=== PATIENT | male | born 1980 | race Caucasian/White ===

== ENCOUNTER 2016-11-05 04:20 | Emergency (ER) | payer MEDICAID ==
[~2016-11-05] VITALS: Ht 188 cm; Wt 77.0 kg
[2016-11-05 06:41] LABS: BASOPHILS # (AUTO) 0.04 K/uL (0.00-0.20); BASOPHILS % (AUTO) 0.6 % (0.0-2.0); EOSINOPHILS # (AUTO) 0.03 K/uL (0.00-0.70); EOSINOPHILS % (AUTO) 0.53 % (1.0-6.0); HEMATOCRIT 41.3 % (41-53); HEMOGLOBIN 13.9 g/dL (13.5-17.5); LYMPHOCYTES # (AUTO) 1.4 K/uL (1.0-4.8); LYMPHOCYTES % (AUTO) 22.3 % (22.0-44.0); MEAN CORPUSCULAR HEMOGLOBIN 30.2 pg (26.0-34.0); MEAN CORPUSCULAR HGB CONC 33.5 G/dL (31.0-37.0); MEAN CORPUSCULAR VOLUME 90 fL (80-100); MONOCYTES # (AUTO) 0.5 K/uL (0.1-1.0); MONOCYTES % (AUTO) 8.4 % (2.0-9.0); NEUTROPHILS # (AUTO) 4.2 K/uL (1.8-7.7); NEUTROPHILS % (AUTO) 68.2 % (40.0-70.0); PLATELET COUNT (AUTO) 247 K/uL (150-450); RED BLOOD CELL COUNT(AUTO) 4.59 MIL/uL (4.50-5.90); RED CELL DISTRIBUTION WIDTH 15.4 % (11.5-14.5); WHITE BLOOD COUNT (AUTO) 6.2 K/uL (4.5-11.0)
[2016-11-05 06:47] LABS: ANION GAP 7 mmol/L (8-16); CALCIUM, TOTAL 9.2 mg/dL (8.8-10.5); CARBON DIOXIDE 30 mmol/L (22-29); CHLORIDE 104 mmol/L (98-107); CREATININE 1.07 mg/dL (0.60-1.30); GLOMERULAR FILTR. RATE CALC > 60 mL/min (>60); POTASSIUM 4.6 mmol/L (3.5-5.1); SODIUM SERUM 141 mmol/L (136-145); UREA NITROGEN, BLOOD 17 mg/dL (7-18)
[2016-11-05 06:53] LABS: ALANINE AMINOTRANSFERASE 41 U/L (12-78); ASPARTATE AMINOTRANSFERASE 38 U/L (15-37); BILIRUBIN,TOTAL 0.4 mg/dL (0.1-1.0); TOTAL PROTEIN, SERUM 7.5 g/dL (6.4-8.2)
[2016-11-05 10:49] VITALS: BP 129/83
== END 2016-11-05 10:51 | disposition home or self-care (01) ==
LOC: EMS 04:21
DX: F15.10 Other stimulant abuse, uncomplicated (principal); F17.200 Nicotine dependence, unspecified, uncomplicated
CPT/HCPCS: 36415; 80053; 80307; 85025; 99284; G0480

== ENCOUNTER 2018-12-11 11:27 | Emergency (ER) | payer MEDICAID ==
[~2018-12-11] VITALS: Ht 188 cm; Wt 112.3 kg
[2018-12-11] MEDS ORDERED: HYDROCODONE/ACETAMINOPHEN 5-325 MG TABLET PO ONE ×2 (12:15→13:00)
[2018-12-11] MEDS ORDERED: LORazepam 1 MG TABLET PO ONE ×2 (12:15→13:00)
[2018-12-11] MEDS ORDERED: KETOROLAC TROMETHAMINE 30 MG/ML VIAL IM ONE (12:30)
[2018-12-11] MEDS ORDERED: LORazepam 0.5 MG TABLET PO ONE (13:00)
[2018-12-11 14:00] VITALS: BP 158/89
[2018-12-11] MEDS ORDERED: CefTRIAXone SODIUM 1 GM/VIAL IM ONE (14:00)
== END 2018-12-11 14:30 | disposition home or self-care (01) ==
LOC: EMS 11:27
DX: N45.1 Epididymitis (principal); F15.90 Other stimulant use, unspecified, uncomplicated
CPT/HCPCS: 76870; 96372; 99284; J0696; J1885

== ENCOUNTER 2019-05-05 00:19 | Emergency (ER) | payer MEDICAID, OTHER ==
[~2019-05-05] VITALS: Ht 188 cm; Wt 77.3 kg
[2019-05-05] MEDS ORDERED: KETOROLAC TROMETHAMINE 30 MG/ML VIAL IM ONE (05:30)
[2019-05-05 07:00] VITALS: BP 155/95
== END 2019-05-05 07:01 | disposition home or self-care (01) ==
LOC: EMS 00:20
DX: S52.121A Displaced fracture of head of right radius, initial encounter for closed fracture (principal); W17.89XA Other fall from one level to another, initial encounter; Y93.39 Activity, other involving climbing, rappelling and jumping off; Y92.89 Other specified places as the place of occurrence of the external cause; Y99.8 Other external cause status
CPT/HCPCS: 73080; 96372; 99283; J1885

== ENCOUNTER 2019-05-09 18:30 | Emergency (ER) | payer OTHER ==
[~2019-05-09] VITALS: Ht 188 cm; Wt 68.1 kg
[2019-05-09 19:17] LABS: BASOPHILS % (AUTO) 0.9 % (0.0-2.0); EOSINOPHILS % (AUTO) 0.2 % (1.0-6.0); HEMATOCRIT 46.7 % (41-53); HEMOGLOBIN 15.4 g/dL (13.5-17.5); LYMPHOCYTES % (AUTO) 14.3 % (22.0-44.0); MEAN CORPUSCULAR HEMOGLOBIN 30.5 pg (26.0-34.0); MEAN CORPUSCULAR VOLUME 93 fL (80-100); MONOCYTES # (AUTO) 0.5 K/uL (0.1-1.0); MONOCYTES % (AUTO) 7.9 % (2.0-9.0); NEUTROPHILS # (AUTO) 5.3 K/uL (1.8-7.7); NEUTROPHILS % (AUTO) 76.7 % (40.0-70.0); PLATELET COUNT (AUTO) 257 K/uL (150-450); RED BLOOD CELL COUNT(AUTO) 5.04 MIL/uL (4.50-5.90); RED CELL DISTRIBUTION WIDTH 14.7 % (11.5-14.5)
[2019-05-09 19:37] LABS: CALCIUM, TOTAL 10.1 mg/dL (8.8-10.5); CREATININE 1.37 mg/dL (0.60-1.30); POTASSIUM 4.1 mmol/L (3.5-5.1)
[2019-05-09 19:40] LABS: ALBUMIN 4.7 g/dL (3.4-5.0); BILIRUBIN,TOTAL 0.8 mg/dL (0.1-1.0); TOTAL PROTEIN, SERUM 8.1 g/dL (6.4-8.2)
[2019-05-09] MEDS ORDERED: KETOROLAC TROMETHAMINE 60 MG/2 ML VIAL IM ONE (21:30)
[2019-05-09] MEDS ORDERED: METOPROLOL SUCCINATE 25 MG ER TABLET PO ONE (21:30)
[2019-05-09] MEDS ORDERED: ChlordiazePOXIDE HCL 25 MG CAPSULE PO ONE (23:30)
[2019-05-10 00:10] VITALS: BP 155/80
== END 2019-05-10 00:11 | disposition home or self-care (01) ==
LOC: EMS 18:32
DX: R07.9 Chest pain, unspecified (principal); F15.10 Other stimulant abuse, uncomplicated; F10.10 Alcohol abuse, uncomplicated; F17.210 Nicotine dependence, cigarettes, uncomplicated
CPT/HCPCS: 36415; 71045; 80053; 84484; 85025; 93005; 96372; 99284; J1885

== ENCOUNTER 2022-06-09 18:45 | Emergency (ER) | payer OTHER ==
[~2022-06-09] VITALS: Ht 188 cm; Wt 100.0 kg
[2022-06-09 20:57] VITALS: BP 142/82
[2022-06-09 21:10] LABS: BASOPHILS % (AUTO) 1.1 % (0.0-2.0); EOSINOPHILS % (AUTO) 1.1 % (1.0-6.0); HEMOGLOBIN 15.7 g/dL (13.5-17.5); LYMPHOCYTES # (AUTO) 1.6 K/uL (1.0-4.8); LYMPHOCYTES % (AUTO) 26.1 % (22.0-44.0); MEAN CORPUSCULAR HEMOGLOBIN 29.6 pg (26.0-34.0); MEAN CORPUSCULAR HGB CONC 33.5 G/dL (31.0-37.0); MEAN CORPUSCULAR VOLUME 88 fL (80-100); MONOCYTES # (AUTO) 0.4 K/uL (0.1-1.0); MONOCYTES % (AUTO) 6.9 % (2.0-9.0); NEUTROPHILS # (AUTO) 4.1 K/uL (1.8-7.7); NEUTROPHILS % (AUTO) 64.8 % (40.0-70.0); PLATELET COUNT (AUTO) 265 K/uL (150-450); RED BLOOD CELL COUNT(AUTO) 5.33 MIL/uL (4.50-5.90); RED CELL DISTRIBUTION WIDTH 13.4 % (11.5-14.5)
[2022-06-09 21:18] LABS: ANION GAP 8 mmol/L (8-16); CALCIUM, TOTAL 9.6 mg/dL (8.8-10.5); CARBON DIOXIDE 25 mmol/L (22-29); CHLORIDE 101 mmol/L (98-107); CREATININE 1.26 mg/dL (0.60-1.30); GLOMERULAR FILTR. RATE CALC > 60 mL/min (>60); GLUCOSE,RANDOM 111 mg/dL (70-110); POTASSIUM 4.1 mmol/L (3.5-5.1); SODIUM SERUM 134 mmol/L (136-145); UREA NITROGEN, BLOOD 16 mg/dL (7-18)
[2022-06-09 21:23] LABS: ALANINE AMINOTRANSFERASE 45 U/L (12-78); ALBUMIN 4.6 g/dL (3.4-5.0); ALKALINE PHOSPHATASE 93 U/L (46-116); ASPARTATE AMINOTRANSFERASE 57 U/L (15-37); BILIRUBIN,TOTAL 0.6 mg/dL (0.1-1.0); TOTAL PROTEIN, SERUM 8.3 g/dL (6.4-8.2)
[2022-06-09] MEDS ORDERED: LORazepam 1 MG TABLET PO ONE (22:45)
[2022-06-09] MEDS ORDERED: HALOPERIDOL 5 MG TABLET PO ONE (22:45)
== END 2022-06-09 23:57 | disposition home or self-care (01) ==
LOC: EMS 18:47
DX: R45.851 Suicidal ideations (principal); F10.10 Alcohol abuse, uncomplicated; F15.10 Other stimulant abuse, uncomplicated; F17.210 Nicotine dependence, cigarettes, uncomplicated
CPT/HCPCS: 99285; 80053; 85025; 36415; G0480

== ENCOUNTER 2023-11-10 04:34 | Emergency (ER) | payer OTHER ==
[~2023-11-10] VITALS: Ht 188 cm; Wt 90.9 kg
[2023-11-10 04:35] VITALS: BP 140/92; PULSE 100; RESP 15; TEMP 98.3
[2023-11-10 05:43] LABS: HEMOGLOBIN 16.2 g/dL (13.5-17.5); LYMPHOCYTES # (AUTO) 1.4 K/uL (1.0-4.8); MONOCYTES # (AUTO) 0.5 K/uL (0.1-1.0); MONOCYTES % (AUTO) 9.4 % (2.0-9.0); RED BLOOD CELL COUNT(AUTO) 5.23 MIL/uL (4.50-5.90); WHITE BLOOD COUNT (AUTO) 5.7 K/uL (4.5-11.0)
[2023-11-10 05:47] LABS: BASOPHILS % (AUTO) 1.3 % (0.0-2.0); EOSINOPHILS % (AUTO) 3.4 % (1.0-6.0); HEMATOCRIT 47.7 % (41-53); LYMPHOCYTES % (AUTO) 23.7 % (22.0-44.0); MEAN CORPUSCULAR HEMOGLOBIN 30.9 pg (26.0-34.0); MEAN CORPUSCULAR VOLUME 91 fL (80-100); NEUTROPHILS # (AUTO) 3.6 K/uL (1.8-7.7); NEUTROPHILS % (AUTO) 62.2 % (40.0-70.0); PLATELET COUNT (AUTO) 273 K/uL (150-450); RED CELL DISTRIBUTION WIDTH 13.3 % (11.5-14.5)
[2023-11-10 05:52] LABS: ANION GAP 10 mmol/L (8-16); CALCIUM, TOTAL 9.1 mg/dL (8.8-10.5); CARBON DIOXIDE 28 mmol/L (22-29); CHLORIDE 101 mmol/L (98-107); CREATININE 1.05 mg/dL (0.60-1.30); GLOMERULAR FILTR. RATE CALC > 60 mL/min (>60); GLUCOSE,RANDOM 89 mg/dL (70-110); POTASSIUM 3.8 mmol/L (3.5-5.1); SODIUM SERUM 139 mmol/L (136-145); UREA NITROGEN, BLOOD 20 mg/dL (7-18)
[2023-11-10 05:57] LABS: ALANINE AMINOTRANSFERASE 39 U/L (12-78); ALBUMIN 4.2 g/dL (3.4-5.0); ALKALINE PHOSPHATASE 76 U/L (46-116); ASPARTATE AMINOTRANSFERASE 30 U/L (15-37); BILIRUBIN,TOTAL 0.8 mg/dL (0.1-1.0)
[2023-11-10 06:01] LABS: ALCOHOL, BLOOD (SERUM) < 3 mg/dL (0-10)
[2023-11-10] MEDS: OLANZapine 10 MG TABLET PO ONE (07:00)
[2023-11-10 07:09] LABS: ALCOHOL, URINE DRUG SCREEN NEGATIVE (NEGATIVE); AMPHET/METH SCREEN,URINE POSITIVE (NEGATIVE); BARBITURATE SCREEN, URINE NEGATIVE (NEGATIVE); BENZODIAZEPINES SCREEN,URINE NEGATIVE (NEGATIVE); CANNABINOID SCREEN,URINE NEGATIVE (NEGATIVE); COCAINE SCREEN,URINE NEGATIVE (NEGATIVE); METHADONE SCREEN, URINE NEGATIVE (NEGATIVE); OPIATE SCREEN,URINE NEGATIVE (NEGATIVE); PHENCYCLIDINE SCREEN,URINE NEGATIVE (NEGATIVE)
== END 2023-11-10 07:08 | disposition home or self-care (01) ==
LOC: EMS 04:34
DX: F15.10 Other stimulant abuse, uncomplicated (principal); F20.9 Schizophrenia, unspecified; F17.210 Nicotine dependence, cigarettes, uncomplicated; F12.90 Cannabis use, unspecified, uncomplicated
CPT/HCPCS: 99283; 80053; 85025; 36415; 80307; G0480

== ENCOUNTER 2023-11-16 04:51 | Emergency (ER) | payer OTHER ==
[~2023-11-16] VITALS: Ht 188 cm; Wt 86.4 kg
[2023-11-16 05:16] VITALS: BP 165/114; PULSE 130; RESP 18; TEMP 98.5
[2023-11-16] MEDS: HALOPERIDOL LACTATE 5 MG/ML VIAL IM ONE (05:37)
[2023-11-16] MEDS: LORazepam 2 MG/ML VIAL IM ONE (05:38)
[2023-11-16] MEDS: BENZTROPINE MESYLATE 2 MG TABLET PO ONE (05:38)
[2023-11-16] MEDS: OLANZapine 5 MG TABLET PO ONE (05:38)
[2023-11-16] MEDS ORDERED: OLAN5TAB52 PO (06:04)
[2023-11-16] MEDS ORDERED: OLAN10TA74 PO (06:04)
== END 2023-11-16 06:21 | disposition home or self-care (01) ==
LOC: EMS 04:52
DX: R44.0 Auditory hallucinations (principal); F15.10 Other stimulant abuse, uncomplicated; F17.210 Nicotine dependence, cigarettes, uncomplicated; F12.90 Cannabis use, unspecified, uncomplicated
CPT/HCPCS: 99284; 96372; J1630; J2060